=== PATIENT | female | born 1995 | race Caucasian/White ===

== ENCOUNTER 2023-12-23 18:18 | Emergency (ER) | payer SELFPAY ==
[~2023-12-23] VITALS: Ht 160 cm; Wt 73.2 kg
[2023-12-23 19:26] LABS: BASO % 0.5 % (0.0-2.0); EOS % 0.3 % (0.0-4.0); GRAN # 4.1 K/mm3 (1.4-6.5); GRAN % 63.5 % (42.2-75.2); HEMATOCRIT 39.9 % (37.0-47.0); HEMOGLOBIN 13.5 g/dl (12.5-16.0); LYMPH # 1.8 K/mm3 (1.2-3.4); LYMPH % 28.7 % (20.0-51.0); MEAN CELL VOLUME 87 fl (80.0-100.0); MEAN CORPUSCULAR HEMOGLOBIN 30 pg (27-31); MEAN CORPUSCULAR HGB CONC 34 g/dl (33.0-37.0); MEAN PLATELET VOLUME 10.7 fl (7.4-10.4); MONO # 0.4 K/mm3 (0.1-0.6); MONO % 6.7 % (1.7-9.3); PLATELET COUNT 258 K/mm3 (130-400); RED BLOOD COUNT 4.57 M/mm3 (4.10-5.30); REDCELL DISTRIBUTION WIDTH-CV 12.3 % (11.5-14.5)
[2023-12-23 19:32] LABS: URINE APPEARANCE CLEAR (CLEAR/HAZY); URINE BLOOD NEGATIVE (NEGATIVE); URINE COLOR YELLOW (YELLOW); URINE GLUCOSE NEGATIVE (NEGATIVE); URINE KETONE 3+ (NEGATIVE); URINE NITRATE NEGATIVE (NEGATIVE); URINE PROTEIN(semi-quant) TRACE (NEGATIVE)
[2023-12-23 19:35] LABS: COLLECTION METHOD CLEAN CATCH
[2023-12-23 19:42] LABS: TRICYCLIC ANTIDEPRESS URINE NEGATIVE (NEGATIVE)
[2023-12-23 19:46] LABS: ALANINE AMINOTRANSFERASE 14 U/L (0-55); ALBUMIN 4.1 g/dL (3.5-5.0); ALCOHOL(ethanol),MEDICAL < 10 mg/dL (0-10); ALKALINE PHOSPHATASE 71 U/L (40-150); ANION GAP 11 mmol/L (7-16); AST,SGOT 15 U/L (5-34); BILIRUBIN,TOTAL 0.7 mg/dL (0.2-1.2); BLOOD UREA NITROGEN 18 mg/dL (7-19); CALCIUM 9.1 mg/dL (8.4-10.2); CHLORIDE 110 mEq/L (98-107); CREATININE, serum 0.82 mg/dL (0.57-1.11); GLUCOSE 89 mg/dL (70-99); POTASSIUM 3.9 mEq/L (3.5-4.5); SALICYLATE < 5.0 mg/dL (15.0-30.0); SODIUM 140 mEq/L (136-145); TOTAL PROTEIN 7.2 g/dl (6.2-8.1)
[2023-12-24] MEDS ORDERED: LORazepam 0.5 MG TAB PO ONE (02:45)
[2023-12-24] MEDS ORDERED: Ibuprofen 600 MG TAB PO ONE (10:15)
[2023-12-24 17:15] VITALS: TEMP 98
[2023-12-24 19:30] VITALS: BP 98/66; PULSE 72
== END 2023-12-24 19:30 ==
LOC: COL.ER 18:18
PROVIDERS: Physician Assistant
DX: R45.851 Suicidal ideations (principal); F17.210 Nicotine dependence, cigarettes, uncomplicated; F17.290 Nicotine dependence, other tobacco product, uncomplicated; Z86.59 Personal history of other mental and behavioral disorders